=== PATIENT | male | born 1950 | race Caucasian/White ===

== ENCOUNTER 2016-05-12 10:03 | Inpatient (IN) | payer MEDICARE ==
[~2016-05-12] VITALS: Ht 172.7 cm; Wt 110.3 kg
--- NOTE | ~2016-05-12 | WND ---
ADMIT: 05/12/2016 RM/LOC: 304 [facility] MR#: [id number] [facility]#: [id number] 2620 [facility] [address] [place] [phone] GABE ZEE [address] [place] [id number] [facility] SEX: M AGE: 65 : 1950 DATE OF VISIT: 05/15/2016 TIME OF VISIT: 15 minutes. REASON FOR VISIT: Abdominal dehisced wound. HISTORY OF PRESENT ILLNESS: Gabe is a 65-year-old male, who was admitted to Dr. Sanz, who is on city-call, on 05/12/2016. He has been at the [facility] where he is recovering from a surgical procedure for an enteric fistula repair which was done at the [facility] in [place]. Gabe is very hard of hearing and it is difficult to converse with him. He was admitted on the sepsis protocol from the emergency room. Staff have been using gauze to pack the abdominal wound with but reports that they are having to change it multiple times a day due to the copious amounts of drainage. PAST MEDICAL HISTORY: 1. Type 2 diabetes mellitus. 2. Paroxysmal atrial fibrillation. 3. Obesity. 4. Gout. 5. Chronic kidney disease. 6. Bipolar disease. 7. Sleep apnea. 8. BPH. 9. Chronic hearing loss. 10.Type 2 diabetes with complications of peripheral neuropathy. 11.Paraplegia from a spinal cord injury 25 years ago. 12.Neurogenic bladder. 13.Remote history of seizures. 14.Chronic anemia. PAST SURGICAL HISTORY: He has had multiple hernia repairs, cholecystectomy, multiple back surgeries, multiple foot surgeries, most recently the enteric abdominal fistula repair, colostomy placement, possible other surgeries. ALLERGIES: Sulfa, simvastatin, diclofenac, pregabalin, and gabapentin. MEDICATIONS: 1. Aspirin. 2. Coumadin. 3. Culturelle. 4. Ditropan. 5. Feosol. 6. Magnesium oxide. 7. Pravachol. 8. Proscar. 9. Senokot. 10.Multivitamin. 11.Topamax. ADMIT: 05/12/2016 RM/LOC: 304 [facility] MR#: [id number] [address] [address] SAADIA, PAUL DANYELLE [address] [address] [facility] SEX: M AGE: 65 : 1950 12.Vitamin B1. 13.Vitamin D. 14.Zyloprim. 15.Zyprexa. 16.Levemir. 17.NovoLog. 18.Lidoderm patches. 19.Nortriptyline. REVIEW OF SYSTEMS: The patient denies any fever or chills. He does report some abdominal pain with procedure. SOCIAL HISTORY: He is . He resides in [place], [place]. 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 He denies smoking, drinking alcohol, or illicit drug use. PHYSICAL EXAMINATION: GENERAL: Gabe is an alert and oriented 65-year-old male. Assessment of his abdomen reveals a full-thickness wound dehiscence on the left side of an ileostomy. It has a moderate amount of serosanguineous drainage soaking through about 6 or 7 gauze pads on top of the wound and the gauze packing is completely saturated. This dressing was just placed at 11 o'clock approximately 4 hours ago. The wound bed of the dehisced area measures 4.5 cm in length x 2.4 cm in width x 3.9 cm in depth. From 3 o'clock to 7 o'clock, there is undermining that measures 7 cm. At 9 o'clock, the undermining measures 5 cm. When palpating the depth of the undermining, the drainage that is obtained from those areas smell like stool. At 6 o'clock, there is pooling of white/montalvo thin drainage. Wound bed is 70% red, 30% yellow slough. ASSESSMENT: 1. Severe sepsis requiring low-dose pressors. 2. Surgical wound infection to the abdomen. 3. Type 2 diabetes mellitus. ADMIT: 05/12/2016 RM/LOC: 304 [facility] MR#: [id number] 2620 [place] [place] [place], [place] [address] SAADIA GABE DANYELLE [address] [place] [id number] [facility] SEX: M AGE: 65 : 1950 4. Status post multiple abdominal procedures, most recently enteric fistula repair of the abdomen at the [facility] [place]. 5. Anemia, multifactorial. PLAN: With what appears to be a fistula in the wound bed, I feel it would not be appropriate to VAC this dehisced abdominal wound. Staff will likely have to change the dressing 3-4 times daily to prevent any periwound breakdown. WOCN will continue to follow the patient while he is in the hospital and advise if there is a different method of caring for this wound. I would like to thank Dr. Padron for allowing us to participate in Gabe's care. Sydnee Velazquez APRN/ alise JOB #: [id number] CC: Josué Sanz, Attending Physician Josué Sanz, Family Physician
--- NOTE | 2016-05-13 11:43 | HP ---
ADMIT: 05/12/2016 RM/LOC: 308 [facility] MR#: [id number] 2620 [facility] [address] [place] [phone] HOLLY ZEE [address] [place] [address] History and Physical SEX: M AGE: 65 : 1950 DATE OF SERVICE: CHIEF COMPLAINT AND HISTORY OF PRESENT ILLNESS: This is a [facility] patient, I am admitting on City Call basis, who presents after sustaining fever at the [facility] where he was recently transferred plus hypertension and tachycardia and he went to the sepsis protocol in the emergency room. He is now examined at the bedside in the ICU, where he is receiving IV fluids, IV antibiotics, and is on Levophed. He has a little bit of upper abdominal pain at the site of the recent surgical incision but otherwise, he is comfortable. Otherwise, no specific complaints. This is in the background of the patient who has had multiple surgical procedures in his abdomen over the last several months, which is well documented in consultation note from Dr. Padron. This includes hernia repair, abdominal procedure apparently for lysis of adhesions and then most recently, an enteric fistula repair for which he was just recently released from the [facility] in [place]. We do not have the actual operative report at this time. At any rate, he presents with what appears to be purulent drainage from the superior portions of most recent surgical wound with concern about the possibility of subcutaneous abscess based on recent CT scanning. PAST MEDICAL HISTORY: 1. Type 2 diabetes. 2. Paroxysmal atrial fibrillation. 3. Obesity. 4. Gout. 5. Chronic kidney disease. 6. Bipolar disease. 7. Sleep apnea. 8. BPH. 9. Chronic hearing loss. 10.Type 2 diabetes with complications of peripheral neuropathy. 11.He is paraparetic from spinal cord injury of about 25 years ago from Trauma and he has neurogenic bladder also as result of that. Also as result of that, he had a colostomy placed for abdominal injury and has had it ever since. 12.Remote history of seizures. 13.Also apparently, chronic anemia. OPERATIONS: He has had multiple hernia repairs, cholecystectomy, multiple back surgeries, multiple foot surgeries, most recently, the enteric abdominal fistular repair, colostomy placement, possibly other surgeries. ALLERGIES: INCLUDE SULFA, SIMVASTATIN, DICLOFENAC, PREGABALIN, AND GABAPENTIN. MEDICATIONS: 1. Aspirin 81 mg daily. 2. Coumadin 5 mg daily, although recently has been off it, so he is subtherapeutic. This is because of his recent surgeries. ADMIT: 05/12/2016 RM/LOC: 308 [facility] MR#: [id number] [address] [address] HOLLY ZEE [address] [place] [id number] History and Physical SEX: M AGE: 65 : 1950 3. Culturelle two caps b.i.d. 4. Ditropan 5 mg b.i.d. 5. Feosol 325 mg b.i.d. 6. Magnesium oxide 400 mg b.i.d. 7. Pravachol 10 mg at bedtime. 8. Proscar 5 mg daily. 9. Senokot S one tab daily. 10.Multivitamin with mineral supplement one tab daily. 11.Topamax 100 mg b.i.d. 12.Vitamin B1, 100 mg daily. 13.Vitamin D 1000 units daily. 14.Zyloprim 200 mg daily. 15.Zyprexa 10 mg at bedtime. 16.Levemir 15 units at bedtime. 17.NovoLog sliding scale. 18.Lidoderm patch two patches daily. 19.Nortriptyline 30 mg at bedtime. 20.Also, recently some oral antibiotics Augmentin and metronidazole. 21.Warfarin 5 mg daily. REVIEW OF SYSTEMS: ENT: Chronic hearing aids, hard of hearing due to noise exposure in his youth. Records reveal that he had detached redness. I do not know what the outcome from all that was. No throat complaints. No nasal complaints. ENDOCRINE: He is diabetic. NEURO: Chronic paraparetic, uses a walker or crutches to walk since his spinal cord injury in the remote past. I do not know the level of the injury. : He has a chronic indwelling Fountain catheter also for 25 plus years due to his remote injury. GI: As in the above history. CARDIOVASCULAR: No chest pain. RESPIRATORY: No cough or shortness of breath. PSYCH: Mental illness has been stable for some time. SOCIAL HISTORY: He is , lives in [place]. 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 He does not smoke or use alcohol or drugs. FAMILY HISTORY: Not pertinent to the current situation. PHYSICAL EXAMINATION: GENERAL: He is currently in no acute distress. Appears calm and comfortable. Hard of hearing. Alert and oriented. VITAL SIGNS: Most recent vitals; temp 97.7, pulse is 70, respirations 14, BP 96/50. His mean arterial pressures have been in the 65-70 range, O2 sat 97% on room air. HEENT: Mucous membranes are moist. Throat appears clear. No nasal discharge. He wears hearing aids. Eyes, he wears glasses. Pupils equal. Sclerae are clear. NECK: No masses. No tenderness. ADMIT: 05/12/2016 RM/LOC: 308 [facility] MR#: [id number] [address] [address] HOLLY ZEE [address] [place] [address] [id number] History and Physical SEX: M AGE: 65 : 1950 LUNGS: Clear, anterior and posterior. Normal respiratory effort. HEART: Regular rhythm. No murmurs appreciated. Currently in sinus. ABDOMEN: Multiple abdominal scars. Recent surgical scar to the left of the midline. The area exposed looks clean. At the top of the scar, there is a dressing in place, draining some bloody material, previously examined by Dr. Padron, who said there was purulent material from the wound and swelling and some redness and some tenderness. Rest of the abdomen was soft to touch, and not apparently tender. : He has an indwelling Fountain catheter in place. Draining clear yellow urine. Upper extremities grossly normal. Normal strength in the lower extremities. Normal in appearance. He has bilateral leg weakness. EXTREMITIES: Not cool to the touch and I believe, I can feel pulses in his feet, suggesting adequate perfusion at this time. PSYCH: He is very calm, not obviously anxious or depressed. BACK: He has large scars present in the midback area primarily. There is reported a stage II ulcer on his buttocks. LABORATORY DATA: CT scan of the abdomen suggest at least possibility of the subcutaneous abscess, although it could be a sterile fluid collection. His labs were reviewed. His creatinine was 1.7, suggestive of at least some degree of renal insufficiency. GFR is 41. Random glucose 147, magnesium just low at 1.7. His lactate was 1.6. Procalcitonin was 0.27. Urinalysis unremarkable. White count 8700, hemoglobin 8.2. Apparently had blood transfusion earlier in the week. Platelets are normal. IMPRESSION: 1. Severe sepsis, requiring low-dose pressors. Source likely subcutaneous surgical wound in the abdominal wound infection. 2. Surgical wound infection. 3. Type 2 diabetes. 4. Status post multiple abdominal procedures, most recently enteric fistula repair of the abdomen. 5. Anemia, multifactorial. No obvious significant active bleeding at this time. 6. Multiple medical problems, as listed above. PLAN: At this time, continue supportive therapy with Levophed and IV fluids. We have ordered Zosyn and vancomycin IV. Blood culture is pending. We will follow closely with surgery on his case. He requested DNR but would accept intubation if necessary. Josué Sanz MD/ alise JOB #: [id number] CC: Josué Sanz, Attending Physician ADMIT: 05/12/2016 RM/LOC: 308 [facility] MR#: [id number] [address] [address] HOLLY ZEE [address] [place], [place] [id number] History and Physical SEX: M AGE: 65 : 1950 Josué Sanz, Family Physician
[2016-05-19] MEDS ORDERED: ASPIRIN EC81 MG PO (18:03)
[2016-05-19] MEDS ORDERED: COUMADIN5 MG PO (18:04)
[2016-05-19] MEDS ORDERED: AUGMENTIN 875-1 EACH PO (18:04)
[2016-05-19] MEDS ORDERED: CULTURELLE1 CAP PO (18:05)
[2016-05-19] MEDS ORDERED: DITROPAN-DPS5 MG PO (18:05)
[2016-05-19] MEDS ORDERED: PROSCAR DPS5 MG PO (18:06)
[2016-05-19] MEDS ORDERED: PRAVACHOL10 MG PO (18:06)
[2016-05-19] MEDS ORDERED: MAG-OX400 MG PO (18:06)
[2016-05-19] MEDS ORDERED: FEOSOL-DPS325 MG PO (18:06)
[2016-05-19] MEDS ORDERED: TOPAMAX100 MG PO (18:07)
[2016-05-19] MEDS ORDERED: SENOKOT S1 TAB PO (18:07)
[2016-05-19] MEDS ORDERED: VITAMIN B1100 MG PO (18:07)
[2016-05-19] MEDS ORDERED: THERAPEUTIC MUL1 TA1 PO (18:07)
[2016-05-19] MEDS ORDERED: OCEAN NASAL MIS45 ML NS (18:08)
[2016-05-19] MEDS ORDERED: ZYPREXA10 MG PO (18:08)
[2016-05-19] MEDS ORDERED: LEVEMIR100 UNIT/1 SQ (18:08)
[2016-05-19] MEDS ORDERED: ZYLOPRIM-DPS100 MG PO (18:08)
[2016-05-19] MEDS ORDERED: LOVENOX DP40 MG/0.4 SQ (18:09)
[2016-05-19] MEDS ORDERED: NOVOLOG100 UNIT/2 SQ (18:09)
[2016-05-19] MEDS ORDERED: LIDODERM PATCH TP (18:10)
[2016-05-19] MEDS ORDERED: CEPACOL SORE T1 EAC1 PO (18:11)
[2016-05-19] MEDS ORDERED: OXY IR DPS5 MG PO (18:11)
[2016-05-19] MEDS ORDERED: COMPAZINE10 MG PO (18:11)
[2016-05-19] MEDS ORDERED: TYLENOL DPS325 MG PO ×2 (18:12→18:13)
[2016-05-19] MEDS ORDERED: PAMELOR DPS10 MG PO (18:12)
[2016-05-19] MEDS ORDERED: ARTIFICIAL SALIVA PO (18:14)
[2016-05-19] MEDS ORDERED: DEBROX OTIC15 ML AU (18:14)
[2016-05-19] MEDS ORDERED: METOPROLOL TART25 MG PO (18:16)
--- NOTE | 2016-05-27 13:31 | DS ---
ADMIT: 05/12/2016 RM/LOC: 419 [facility] MR#: [id number] [address] [address] HOLLY ZEE [address] [place] [address] General Discharge Summary SEX: M AGE: 65 : 1950 ADMISSION DATE: 05/12/2016 DISCHARGE DATE: 05/18/2016 FINAL DIAGNOSES: 1. Septic shock. 2. Acute surgical wound infection secondary to Enterococcus faecalis. 3. Status post recent surgical repair of a small intestinal fistula. 4. Chronic atrial fibrillation, on chronic Coumadin therapy. 5. Type 2 diabetes. 6. Anemia, multifactorial including recent GI blood loss requiring transfusion of 1 unit of blood. 7. Fluid overload most likely secondary to treatment of his bacterial sepsis, which was improving on dismissal. 8. Chronic paraparesis. 9. Chronic colostomy. 10.Chronic indwelling Fountain catheter. 11.Morbid obesity. NARRATIVE: This is a 65-year-old male, admitted on City Call basis via the [facility]. He was transferred from the [facility] where he had only recently been transferred from [place] to recover from recent surgery performed in [place]. Understanding was that he had repair of an enteric fistula. This is in a patient who has had multiple other abdominal surgeries in the past and has a chronic colostomy present. He was transferred due to fever and hypotension and was felt to have sepsis. He required fluid resuscitation in the emergency room, in the ICU, and eventually low-dose pressor therapy to maintain adequate pressures. He was presenting with foul-smelling purulent discharge from his surgical wound and this was thought after workup to be the source of his infection. PAST MEDICAL HISTORY: Notable for those diagnoses I have listed above as well as gout, some degree of chronic kidney disease, bipolar, sleep apnea, BPH, chronic hearing loss, paraparesis from spinal injury about 25 years ago from trauma and resulting neurogenic bladder and colostomy placement. Remote history of seizures and also some degree of being chronically anemic. PHYSICAL EXAMINATION: On initial exam, the patient is at the bedside in the ICU after he received the bolus of fluid in the ER. He was in no acute distress. He was calm, comfortable, very hard of hearing, alert and oriented. His temp was 97.7, pulse 70, BP 96/50, O2 saturation 97% on room air. Cardiorespiratory exam was unremarkable. He had multiple abdominal scars. Recent surgical scar to the left of the midline. Dr. Padron surgically consulted and previously examined this described purulent material from the wound and swelling and redness and tenderness. It had been since subsequently dressed and I chose not to remove the dressing at that time. The rest of his abdomen was soft to touch, not apparently tender. Chronic indwelling Fountain catheter. Chronic colostomy. Mental status was calm. LABORATORY DATA: CT scan of the abdomen suggested at least a possibility of ADMIT: 05/12/2016 RM/LOC: 419 [facility] MR#: [id number] [address] [address] HOLLY ZEE [address] [place] [address] General Discharge Summary SEX: M AGE: 65 : 1950 subcutaneous abscess could be a sterile fluid collection. Creatinine is 1.7, GFR 41, glucose 147, lactate 1.6, procalcitonin 0.27. White count 8700, hemoglobin 8.2 with normal platelets. Initial INR was subtherapeutic at 1.12. My understanding was that he had been off Coumadin recovering from the surgery and is now back on it. By the time he was dismissed, his INR was up to 1.87. His hemoglobin dropped to a unruly of 7.4, by which time he was transfused and his hemoglobin remained stable at 8.5 the rest of the hospital stay. By hospital dismissal, his creatinine was 1.4. His bedside Accu-Cheks remained in the 100-200 range throughout his hospital stay. He did have an elevated vancomycin level on May 15 at 41.9. He received no further doses of vancomycin after that. Blood culture showed no growth. He did grow 2 germs out of his abdominal wound; 1 was Enterococcus faecalis, and then after hospital dismissal, he grew some beta-lactamase positive gram-positive organism Parabacteroides. The patient was admitted to Acute Care. Consultation with Surgery as discussed. No additional surgery was recommended. The patient did respond to measures for this septic shock with fluids and now IV antibiotic, a gradual overall ongoing improvement throughout his hospital stay. There were some issues with some fluid overload due to the fluids he received while on pressors, and as noted was transfused 1 unit of blood which was felt indicated because of his sepsis and blood pressure issues. Overall though, he continued to progress and was felt ready to be dismissed back to the [facility] on May 18. I did discuss the case with one of the staff physicians at the [facility] on the day of dismissal and she accepted him in transfer. DISCHARGE MEDICATIONS: Dismissal medications included: 1. Aspirin. 2. Augmentin. 3. Coumadin. 4. Probiotics. 5. Ditropan. 6. Ferrous sulfate. 7. Magnesium oxide. 8. Pravachol. 9. Proscar. 10.Senokot. 11.Multivitamin. 12.Topamax. 13.Thiamin. 14.Vitamin D. 15.Zyloprim. 16.Zyprexa. 17.[place]. 18.Lantus. 19.Lovenox. 20.NovoLog sliding scale. ADMIT: 05/12/2016 RM/LOC: 419 [facility] MR#: [id number] 2620 [facility] [address] [place], [place] [address] HOLLY ZEE [address] [place] [address] General Discharge Summary SEX: M AGE: 65 : 1950 21.Lidoderm. 22.Acetaminophen. 23.Nortriptyline. 24.Cipro. DIET: ADA. He would have local wound measures with wet-to-dry dressings of his open abdominal wound, which was improving and recommended that he have a protime within 3-4 days for surveillance of his Coumadin dose. Josué Sanz MD/ alsie JOB #: [id number] CC: Josué Sanz MD, Attending Physician Josué Sanz MD, Family Physician . [facility]
--- NOTE | 2016-05-29 18:34 | ER ---
ADMIT: 05/12/2016 RM/LOC: 419 [facility] MR#: [id number] [address] [address] HOLLY ZEE [address] [place] [id number] Emergency Room Report SEX: M AGE: 65 : 1950 DATE: 05/12/2016 ADDENDUM: A 65-year-old white male coming in with essentially abdominal pain repair, low blood pressure. Essentially, we did the sepsis protocol antibiotics, admitted him as a sepsis patient. MD was busy or full and could not take him. Thus, Dr. Sanz had admitted. I refer you to his H and P. CONDITION DISCHARGE: Serious. Blade Swanson MD/ modl JOB #: [id number] CC: Josué Sanz MD, Attending Physician Josué Sanz MD, Family Physician
--- NOTE | 2016-06-14 10:44 | CO ---
ADMIT: 05/12/2016 RM/LOC: 308 [facility] MR#: [id number] 2620 [facility] [address] [place], [place] [address] GABE ZEE [address] [place] [address] Consultation SEX: M AGE: 65 : 1950 DATE OF CONSULTATION: 05/12/2016 ATTENDING PHYSICIAN: Josué Sanz CONSULTING PHYSICIAN: Russel Padron MD CHIEF COMPLAINT: Tachycardia and hypertension, concerns for sepsis. HISTORY OF PRESENT ILLNESS: aGbe is a very pleasant, 65-year-old male, who has a very complex history and is a [facility] patient. Apparently, he has not been admitted to the [facility] since December of last year and at that time, he underwent exploratory laparotomy with lysis of adhesions. 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 So far, he is being managed with TPN and had slow progress; however, it did not completely heal all the way up, and so he was seen for closure of this on 04/25/2016. Finally after having this operation and postoperative management of this, the patient was discharged from the [facility] and went to see his primary care physician. At that time, he was noted to have hypertension, tachycardia, and was running a low grade fever. He is now sent to the emergency room and has been admitted to the ICU under our management. The patient has a very complex surgical history. In , he was stricken down by a falling tree where he underwent extensive back trauma and partial paraplegia of his lower extremities. Due to this, the patient had surgery to have an ostomy placed. Throughout his postsurgical management recently, he has had a CHE placed that has purulent discharge. Despite his history, the patient today denies any complaints. He denies any fever, chills, night sweats, pain, nausea, vomiting, diarrhea, constipation, dark or bloody stools. He has noticed an increase in his ostomy output recently. He is now being admitted to the ICU. PAST MEDICAL HISTORY: Significant for: 1. Anemia. 2. Dyslipidemia. 3. Neurogenic bowel and bladder. 4. Low back pain. 5. Type 2 diabetes. 6. Obesity. 7. Gout. 8. Diabetic peripheral neuropathy. 9. Renal failure. 10.Hearing loss. 11.Retinal detachment. 12.Bipolar disorder. 13.Sleep apnea. 14.BPH. 15.Incomplete paraplegia. PAST SURGICAL HISTORY: 1. Laparotomy closure of enterocutaneous fistula with mesh placement at the end of April of this year. ADMIT: 05/12/2016 RM/LOC: 308 [facility] MR#: [id number] [address] [address] GABE ZEE [address] [place] [address] [phone] Consultation SEX: M AGE: 65 : 1950 2. Exploratory laparotomy with lysis of adhesions, 12/27/2015. 3. Ostomy placement for lower back trauma. 4. Abdominal hernia repair x3. 5. Two back surgeries. ALLERGIES: 1. SULFAMETHOXAZOLE. 2. SIMVASTATIN. 3. DICLOFENAC. 4. PREGABALIN. 5. GABAPENTIN. MEDICATIONS: 1. Acetaminophen. 2. Allopurinol. 3. Artificial saliva liquid. 4. Benzocaine menthol lozenge. 5. Cholecalciferol. 6. Docusate sodium caps. 7. Finasteride. 8. NovoLog sliding scale. 9. Lactobacillus capsule. 10.Lidocaine patch. 11.Protriptyline. 12.Olanzapine. 13.Oxybutynin. 14.Pravastatin. 15.Topiramate. 16.Tramadol. FAMILY HISTORY: Noncontributory. SOCIAL HISTORY: The patient denies any tobacco, alcohol, or illicit drug use. He states he is a never user. REVIEW OF SYSTEMS: CONSTITUTIONAL: The patient denies any fever, chills, or night sweats. The rest of comprehensive 10-point review of systems was performed and all other systems are negative. PHYSICAL EXAMINATION: GENERAL: The patient is in no acute distress. He is alert and oriented. HEENT: Head is normocephalic and atraumatic. EOMS are intact. Conjunctivae free of icterus, erythema, pallor. Pinnae, free of deformities. Nose, midline. No tracheal deviation. NECK: Supple. SKIN: Negative for jaundice, clubbing, edema, pallor, or cyanosis. LUNGS: Normal respiratory effort. HEART: Distal pulses intact. Regular rate and rhythm. ADMIT: 05/12/2016 RM/LOC: 308 [facility] MR#: [id number] [address] [address] GABE ZEE [address] [place] [address] Consultation SEX: M AGE: 65 : 1950 ABDOMEN: Soft, nondistended, and nontender. Ostomy present and intact. CHE drain present and intact with purulent discharge. Fairly long surgical incision with terri present starting from the suprapubic region and extending up to the left upper quadrant. Dehiscence noted at the top of the incision, approximately 2.5 x 1.5 cm. Purulent discharge noted. Abdominal obesity noted. NEURO: Grossly intact. LABORATORY DATA: White blood cell count 8.7, hemoglobin 8.2. ASSESSMENT: 1. Wound dehiscence. 2. Possible enterocutaneous fistula. 3. Decubitus ulcer at the sacrum. 4. Positive screen for sepsis. PLAN: The plan is to have the patient admitted to the ICU under Dr. Padron. At this time, we believe dressing changes will be adequate for the wound dehiscence and see how he does while in the hospital. He is stable. I have taken out all the terri and did not note any other dehiscence anywhere along the surgical site. We will continue his drain and ostomy. We will also have Wound Care on board to help with dressing changes and with the sacral wound. The patient is in agreement of this plan and would like to proceed. ERINN Cuadra / Russel Padron MD / alise JOB #: [id number] CC: Josué Sanz, Attending Physician Josué Sanz, Family Physician
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
== END 2016-05-18 10:30 | DRG 862 ==
LOC: ER 10:03 → 3ICU 13:14 → 4PCU 05-16 23:52
PROVIDERS: ADMIT Family Medicine
PROC: 02HV33Z Insertion of Infusion Device into Superior Vena Cava, Percutaneous Approach (ICD-10-PCS; principal; 2016-05-13)
PROC: 30233N1 Transfusion of Nonautologous Red Blood Cells into Peripheral Vein, Percutaneous Approach (ICD-10-PCS; 2016-05-15)
DX: T81.4XXA Infection following a procedure, initial encounter (principal); A41.9 Sepsis, unspecified organism; R65.21 Severe sepsis with septic shock; T81.31XA Disruption of external operation (surgical) wound, not elsewhere classified, initial encounter; G82.20 Paraplegia, unspecified; B95.2 Enterococcus as the cause of diseases classified elsewhere; I48.0 Paroxysmal atrial fibrillation; E66.9 Obesity, unspecified; M10.9 Gout, unspecified; W20.8XXS Other cause of strike by thrown, projected or falling object, sequela; D63.8 Anemia in other chronic diseases classified elsewhere; E11.22 Type 2 diabetes mellitus with diabetic chronic kidney disease; N18.9 Chronic kidney disease, unspecified; E87.70 Fluid overload, unspecified; F31.9 Bipolar disorder, unspecified; E78.5 Hyperlipidemia, unspecified; G47.30 Sleep apnea, unspecified; N40.0 Benign prostatic hyperplasia without lower urinary tract symptoms; H91.90 Unspecified hearing loss, unspecified ear; E11.40 Type 2 diabetes mellitus with diabetic neuropathy, unspecified; N31.9 Neuromuscular dysfunction of bladder, unspecified; Z93.3 Colostomy status; Z79.01 Long term (current) use of anticoagulants; Z79.82 Long term (current) use of aspirin; Z66 Do not resuscitate; Z68.37 Body mass index [BMI] 37.0-37.9, adult